=== PATIENT | male | born 1945 | race African-American/Black ===

== ENCOUNTER 2020-05-10 17:17 | Emergency (ER) | payer MEDICARE ==
[~2020-05-10 17:17] MED LIST: Iopamidol-370 76% 500 ML 1 ML ONE
[2020-05-10 18:22] LABS: #Eosinphils 0.7 thou/uL (0.0-0.7); #Lymphocytes 1.6 thou/uL (1.20-3.40); #Monocytes 0.5 thou/uL (0.11-0.59); #Neutrophils 2.8 thou/uL (1.40-6.50); %Basophils 0.5 % (0.0-1.0); %Eosinophils 13.2 % (0.0-10.0); %Lymphocytes 28.5 % (21.0-51.0); %Monocytes 8.4 % (0.0-10.0); %Neutrophils 49.4 % (42.0-75.0); Hemoglobin 15.4 g/dL (14.0-18.0); Mean Corpuscular HGB CONC 32.2 g/dL (32.0-36.0); Mean Corpuscular Hemoglobin 28.5 pg (27.0-31.0); Mean Corpuscular Volume 88.5 fL (78.0-98.0); Mean Platelet Volume 7.4 fL (7.4-10.4); Platelet Count 250 thou/uL (130-400); Red Blood Cell (RBC) Count 5.39 mill/uL (4.70-6.10); White Blood Cell (WBC) Count 5.6 thou/uL (4.8-10.8)
[2020-05-10 18:43] LABS: ALT (SGPT) 30 U/L (8-55); AST (SGOT) 20 U/L (5-34); Albumin 4.7 g/dL (3.4-4.8); Alkaline Phosphatase 71 U/L (40-110); Anion Gap 12 mmol/L (10-20); BUN (Urea Nitrogen) 17 mg/dL (8.4-25.7); Bilirubin, Total 0.6 mg/dL (0.2-1.2); Calc. Creatinine Clearance 0 mL/min (70-130); Carbon Dioxide 24 mmol/L (23-31); Chloride 107 mmol/L (98-107); Estimated GFR-MDRD 58; Globulin 3.3 g/dL (2.4-3.5); Glucose 125 mg/dL (83-110); Lipase 43 U/L (8-78); Potassium 4.1 mmol/L (3.5-5.1); Sodium 139 mmol/L (136-145)
[2020-05-10 19:07] LABS: Bilirubin Negative (Negative); Blood, Urine Negative (Negative); Clarity Turbid (Clear); Glucose, Urine (Dipstick) Normal (Negative); Ketone, Urine Negative (Negative); Leukocyte 500 Leu/uL (Negative); Nitrite Negative (Negative); Protein, Urine (Dipstick) 30 mg/dL (Neg-Trace); Specific Gravity, Urine 1.026 (1.002-1.036); Squamous Epithelial 0-3 HPF (0-3); Urobilinogen Normal mg/dL (Less than 2); WBC/HPF Greater than 50 HPF (0-3)
[2020-05-10 19:09] LABS: Bacteria/HPF 1+ HPF (None Seen)
--- NOTE | 2020-05-10 19:44 | CT ---
CT ABDOMEN AND PELVIS WITH IV CONTRAST 05/10/2020 CLINICAL INFORMATION: Abdominal pain over 2 weeks which has gotten worse. COMPARISON: Noncontrast CT abdomen and pelvis and 2009 Technique: Multiple contiguous axial CT images are obtained through the abdomen and pelvis with IV contrast. Cor onal reformatted images are provided. FINDINGS: Lower Chest: Scarring versus atelectasis at each lung base. Vessels: Vascular calcifications present in the visualized coronary arteries as well as involving the abdominal aorta and iliac arteries. Abdomen: Portal vein:Patent Gallbladder: Within normal limits for CT imaging. Liver: Subcentimeter too small to characterize hypodense lesion posterior segment right hepatic lobe. Spleen: within normal limits. Pancreas: within normal limits. Adrenals: within normal limits. Kidneys: A 1.6 cm fluid attenuation cystic lesion is seen in the midportion left kidney compatible wi th a cyst. Kidneys otherwise have a normal CT appearance bilaterally. Bowel: Multiple surgical clips are seen in the epigastric region and adjacent to the gastric cardia. There is mild deformity of the stomach in region of surgical clips. Findings could be related to postoperative changes and possibly secondary to prior hiatal hernia repair. Clinical correlation is s uggested. Loops of small bowel are normal in caliber. Appendix: No CT findings to suggest appendicitis. Peritoneum: No ascites or free air; no fluid collection. Mesentery and Retroperitoneum: No enlarged mesenteric or retroperitoneal lymph nodes. Abdominal Wall: within normal limits. Pelvis: Reproductive Organs: Prostate gland is enlarged and lobulated measuring 5.8 cm. Pelvis a penile prosthesis is visualized. Bladder: Lobulated irregularity appearance at the base of the urinary bladder on the left which is mo st likely attributable to an asymmetrically lobulated and enlarged prostate gland. Visualization suggested. Bones: Degenerative changes in the spine. IMPRESSION: 1. Asymmetric lobulated appearance of the base urinary bladder on the left. This is most likely relat ed to asymmetric enlargement of the prostate gland which demonstrates a lobulated contour. However, direct visualization is suggested. 2. Irregularity in the region of the gastric cardia and proximal body of the stomach along the lesser curvature likely attributable to postoperative changes. Multiple surgical clips are seen in this region. 3. Subcentimeter too small to characterize hypodense lesion right hepatic lobe. 4. Left renal cyst.
[2020-05-10] MEDS ORDERED: Morphine 4 MG/ML VIAL ONE (20:50)
== END 2020-05-10 21:13 | disposition home or self-care (01) ==
LOC: ERS 17:17
DX: N12 Tubulo-interstitial nephritis, not specified as acute or chronic (principal); N42.89 Other specified disorders of prostate; E11.9 Type 2 diabetes mellitus without complications; E78.5 Hyperlipidemia, unspecified; I10 Essential (primary) hypertension; N40.0 Benign prostatic hyperplasia without lower urinary tract symptoms; Z79.82 Long term (current) use of aspirin; Z79.84 Long term (current) use of oral hypoglycemic drugs; Z79.899 Other long term (current) drug therapy
CPT/HCPCS: 74177; 80053; 81003; 81015; 83690; 85025; 96374; J2270; Q9967

== ENCOUNTER 2020-08-21 11:29 | Observation (INO) | payer MEDICARE ==
[2020-08-21 13:00] LABS: #Eosinphils 0.8 thou/uL (0.0-0.7); #Lymphocytes 1.6 thou/uL (1.20-3.40); #Monocytes 0.5 thou/uL (0.11-0.59); #Neutrophils 2.6 thou/uL (1.40-6.50); %Basophils 0.8 % (0.0-1.0); %Eosinophils 14.9 % (0.0-10.0); %Lymphocytes 29.5 % (21.0-51.0); %Neutrophils 46.8 % (42.0-75.0); Hemoglobin 14.9 g/dL (14.0-18.0); Mean Corpuscular Hemoglobin 30.3 pg (27.0-31.0); Mean Corpuscular Volume 86.6 fL (78.0-98.0); Mean Platelet Volume 6.9 fL (7.4-10.4); Platelet Count 242 thou/uL (130-400); RBC Distribution Width 12.3 % (11.5-14.5); Red Blood Cell (RBC) Count 4.93 mill/uL (4.70-6.10); White Blood Cell (WBC) Count 5.6 thou/uL (4.8-10.8)
[2020-08-21 13:15] LABS: ALT (SGPT) 27 U/L (8-55); AST (SGOT) 21 U/L (5-34); Albumin 4.5 g/dL (3.4-4.8); Alkaline Phosphatase 55 U/L (40-110); Anion Gap 16 mmol/L (10-20); BUN (Urea Nitrogen) 28 mg/dL (8.4-25.7); Bilirubin, Total 0.4 mg/dL (0.2-1.2); Calc. Creatinine Clearance 0 mL/min (70-130); Carbon Dioxide 19 mmol/L (23-31); Chloride 106 mmol/L (98-107); Estimated GFR-MDRD 48; Globulin 3.3 g/dL (2.4-3.5); Glucose 100 mg/dL (83-110); Lipase 30 U/L (8-78); Potassium 5.4 mmol/L (3.5-5.1); Protein, Total 7.8 g/dL (5.8-8.1); Sodium 136 mmol/L (136-145)
[2020-08-21 13:22] LABS: Bacteria/HPF 1+ HPF (None Seen); Bilirubin Negative (Negative); Blood, Urine 3+ (Negative); Clarity Turbid (Clear); Glucose, Urine (Dipstick) Normal (Negative); Ketone, Urine Negative (Negative); Leukocyte 250 Leu/uL (Negative); Nitrite Negative (Negative); Protein, Urine (Dipstick) 100 mg/dL (Neg-Trace); RBC/HPF Greater than 50 HPF (0-3); Specific Gravity, Urine 1.026 (1.002-1.036); Squamous Epithelial 0-3 HPF (0-3); Urobilinogen Normal mg/dL (Less than 2); WBC/HPF 21-50 HPF (0-3); pH, Urine 5.5 (5.0-9.0)
[2020-08-21] MEDS ORDERED: cefTRIAXone\\ROCEPHIN 2 GM VIAL ONE (13:59)
--- NOTE | 2020-08-21 14:26 | CT ---
CT ABDOMEN AND PELVIS WITHOUT CONTRAST: 08/21/20 PROVIDED CLINICAL HISTORY: Left lower quadrant pain. FINDINGS: Comparison is made with the study dated 05/10/20. The visualized lung bases are free of significant opacity. The solid abdominal organs are suboptimally evaluated in the absence of IV contrast material but demo nstrates an unremarkable unenhanced CT appearance of a stable left renal cyst. The urinary bladder is decompressed by a Bernardo catheter. The prostate again appears enlarged. There is stranding involving the fat about the urinary bladder. Penile prosthesis is again noted. There is no bowel dilatation, additional inflammatory fat stranding, free fluid or free air apparent. There is no evidence for appendicitis. Conspicuous atherosclerotic vascular calcifications are seen, including at least moderate stenosis at the SMA origin. Osseous structures demonstrate no concerning lytic or blastic lesions. IMPRESSION: 1. Stranding of the fat about the urinary bladder, suggesting cystitis. 2. Other chronic findings as described. POS: JOESPH
[2020-08-21 14:29] LABS: Anion Gap 19 mmol/L (10-20); BUN (Urea Nitrogen) 27 mg/dL (8.4-25.7); Calc. Creatinine Clearance 0 mL/min (70-130); Calcium 10.1 mg/dL (7.8-10.44); Carbon Dioxide 16 mmol/L (23-31); Chloride 106 mmol/L (98-107); Estimated GFR-MDRD 50; Glucose 94 mg/dL (83-110); Potassium 5.7 mmol/L (3.5-5.1); Sodium 135 mmol/L (136-145)
[2020-08-21] MEDS ORDERED: Insulin Regular 300 UNITS/3 ML VIAL ONE (14:56)
[2020-08-21] MEDS ORDERED: Dextrose 50% Abboject 50 ML SYRINGE ONE (14:56)
[2020-08-21] MEDS ORDERED: Senokot S 8.6-50 MG TAB PO PRN (16:25)
[2020-08-21] MEDS ORDERED: Acetaminophen 325 MG TAB PO PRN (16:25)
[2020-08-21] MEDS ORDERED: Sodium Chloride 0.9% 1,000 ML IV SCH (16:30)
[2020-08-21] MEDS ORDERED: Calcium Gluc 4.6 MEQ/10 ML (100 MG/ML) SLOW IVP SCH (16:30)
[2020-08-21] MEDS ORDERED: Calcium Gluc 4.6 MEQ/10 ML (100 MG/ML) ONE (16:43)
[2020-08-21] MEDS ORDERED: hydrALAZINE 20 MG/ML VIAL SLOW IVP PRN (17:07)
[2020-08-21] MEDS ORDERED: cefTRIAXone\\ROCEPHIN 1 GM VIAL ONE (17:33)
[2020-08-21] MEDS: cefTRIAXone\\ROCEPHIN 1 GM in Sodium Chloride 0.9% 100 ML IVPB SCH (17:37)
--- NOTE | 2020-08-21 19:31 | HP ---
CHIEF COMPLAINT: Left-sided flank pain. HISTORY OF PRESENT ILLNESS: The patient is a 75-year-old male with a history of hypertension and benign prostate hyperplasia, who comes into the hospital with complaints of left flank pain which has been going on for several months. The patient states that this pain is not new. However, he states that he recently had a Bernardo catheter put in at [facility] by Dr. Becerril, who is his urologist, since he has been having problems urinating. He was supposed to follow up with Dr. Becerril on September 01 for removal of the Bernardo catheter. He does have a penile prosthesis. He denies any fevers, chills, nausea, vomiting, diarrhea. He had pyelonephritis about a month ago and was treated appropriately. In the ED, he was noted to have hyperkalemia and also mild acute kidney injury. At this time, he was admitted to the hospital on telemetry for further evaluation. PAST MEDICAL HISTORY: History of type 2 diabetes, high cholesterol, hypertension, BPH, hepatitis C, penile prosthesis. PAST SURGICAL HISTORY: He has penile prosthesis. SOCIAL HISTORY: He is a former drug user, used cocaine. Denies any alcohol use. The patient has no smoking history. He is a full code. Lives with his family. FAMILY HISTORY: No history of heart disease or strokes. ALLERGIES: HE HAS NO KNOWN DRUG ALLERGIES. MEDICATIONS: He does not have a list of medications. I have asked the patient to bring his medication list. REVIEW OF SYSTEMS: All negative except for the ones mentioned above in the HPI. PHYSICAL EXAMINATION: VITAL SIGNS: Temperature 97.6, blood pressure 132/93, pulse 91, sats are 98% on room air. GENERAL: He is awake, alert, and oriented x3. Does not appear in distress. CV: S1, S2 present. No murmurs, rubs, or gallops. ABDOMEN: Soft and nontender. Bowel sounds are present x2. EXTREMITIES: No edema. Pedal pulses are present x2. LUNGS: Clear to auscultation. No rhonchi or wheezes noted. NEUROVASCULAR: No focal deficits noted. SKIN: No cuts, lesions, or bruises noted. LABORATORY RESULTS: As of the following: Sodium of 135, potassium of 5.7, BUN of 27, creatinine 1.62. His urine appears wbc's of 21 to 50 with 1+ bacteria. Lipase is 30. CBC; WBCs of 5.6, hemoglobin of 14.9, hematocrit of 42.7, his platelets are 242. He does have eosinophils elevated. He did have a CT of abdomen and pelvis without contrast which indicated stranding of the fat above the urinary bladder suggesting cystitis and just some chronic copious amount of atherosclerotic vascular calcification including moderate stenosis at the SMA origin. ASSESSMENT AND PLAN: Patient is a very pleasant 75-year-old male, who presents to the hospital with left-sided abdominal pain. 1. Intermittent left-sided flank pain. The patient did not have pain upon palpation. He states that it is just around the left flank area and it comes at times. Currently, he did not have any pain. His urine appeared a little concern for possible infectious. We will start him on ceftriaxone for now. We will send the urine for culture. 2. Hyperkalemia, unclear etiology. He denies eating anything out of the ordinary. I do not have his medication list to review. I am not sure if he is on lisinopril. I have asked the family to bring in the medication list. He was given insulin and D50. I will give him calcium gluconate. EKG did not have any acute changes. We will recheck a BMP later. We will also check a magnesium. 3. Mild acute kidney injury. We will continue some gentle hydration and see if that improves it. 4. Urinary tract infection. We will continue ceftriaxone for now. He was not on any recent antibiotics per the patient. His Bernardo catheter was changed in the ER with a new Bernardo catheter that was placed with a leg bag. 5. Deep venous thrombosis prophylaxis. We will put the patient on SCDs and subcu heparin. Job ID: [id number]
[2020-08-21 20:36] LABS: Anion Gap 14 mmol/L (10-20); BUN (Urea Nitrogen) 20 mg/dL (8.4-25.7); Calc. Creatinine Clearance 0 mL/min (70-130); Calcium 9.6 mg/dL (7.8-10.44); Carbon Dioxide 19 mmol/L (23-31); Chloride 108 mmol/L (98-107); Estimated GFR-MDRD 66; Glucose 78 mg/dL (83-110); Potassium 4.1 mmol/L (3.5-5.1); Sodium 137 mmol/L (136-145)
[2020-08-21 22:11] VITALS: BMI 25.7
[2020-08-22 04:47] LABS: #Basophils 0.1 thou/uL (0.0-0.2); #Eosinphils 1.1 thou/uL (0.0-0.7); #Lymphocytes 1.8 thou/uL (1.20-3.40); #Monocytes 0.6 thou/uL (0.11-0.59); #Neutrophils 2.8 thou/uL (1.40-6.50); %Basophils 0.9 % (0.0-1.0); %Eosinophils 17.6 % (0.0-10.0); %Lymphocytes 27.7 % (21.0-51.0); %Neutrophils 43.8 % (42.0-75.0); Hemoglobin 13.7 g/dL (14.0-18.0); Mean Corpuscular HGB CONC 33.8 g/dL (32.0-36.0); Mean Corpuscular Hemoglobin 29.5 pg (27.0-31.0); Mean Corpuscular Volume 87.1 fL (78.0-98.0); Mean Platelet Volume 6.9 fL (7.4-10.4); Platelet Count 245 thou/uL (130-400); RBC Distribution Width 12.2 % (11.5-14.5); Red Blood Cell (RBC) Count 4.64 mill/uL (4.70-6.10); White Blood Cell (WBC) Count 6.4 thou/uL (4.8-10.8)
[2020-08-22 05:15] LABS: Anion Gap 14 mmol/L (10-20); BUN (Urea Nitrogen) 17 mg/dL (8.4-25.7); Calc. Creatinine Clearance 58 mL/min (70-130); Calcium 9.5 mg/dL (7.8-10.44); Carbon Dioxide 20 mmol/L (23-31); Chloride 108 mmol/L (98-107); Estimated GFR-MDRD 76; Glucose 93 mg/dL (83-110); Potassium 5.2 mmol/L (3.5-5.1); Sodium 137 mmol/L (136-145)
[2020-08-22] MEDS ORDERED: Enoxaparin Sodium 40 MG/0.4 ML SYRINGE SC SCH (09:00)
[2020-08-22] MEDS ORDERED: HumaLOG 300 UNITS/3 ML VIAL SC PRN ×2 (09:01)
[2020-08-22] MEDS ORDERED: Dextrose 5% in Water 1,000 ML IV PRN (09:01)
[2020-08-22] MEDS ORDERED: Dextrose 50% Abboject 50 ML SYRINGE SLOW IVP PRN (09:01)
--- NOTE | 2020-08-22 09:23 | PDOC.HOSPP ---
- Subjective Encounter Date: 08/22/20 Encounter Time: 09:21 Subjective: Patient seen and examined. No new complaints. No overnight events. Says he is feeling much better, still has some discomfort in pelvic region. Denies any nausea, vomiting or diarrhea. Denies any fever or chills. Denies any chest pain or heart palps or SOB. He is going to speak with his spouse via phone this morning to confirm his home medications. - Objective Vital Signs & Weight: Vital Signs (12 hours) Temp Pulse Resp BP Pulse Ox 08/22/20 03:45 97.9 F 83 16 166/72 H 96 Weight Weight 163 lb 14.4 oz I&O: 08/21/20 08/22/20 08/23/20 07:59 06:59 06:59 Intake Total Output Total Balance Result Diagrams: 08/22/20 04:09 08/22/20 04:09 Additional Labs: Accuchecks 08/22/20 06:20 POC Glucose 105 H EKG Reviewed by me: Yes Hospitalist ROS - Review of Systems Constitutional: denies: fever, chills Respiratory: denies: cough, shortness of breath, hemoptysis Cardiovascular: denies: chest pain, palpitations, orthopnea, edema, light headedness Gastrointestinal: denies: nausea, vomiting, abdominal pain, diarrhea Skin: denies: bruising Neurological: denies: weakness, change in speech All other systems reviewed; all pertinent +/- noted in HPI/Subj - Medication Medications: Active Medications Generic Name Dose Route Start Last Admin Trade Name Freq PRN Reason Stop Dose Admin Acetaminophen 650 mg 08/21/20 16:25 08/22/20 05:10 Acetaminophen 325 Mg Tab PO 650 mg Q4H PRN Administration Headache/Fever/Mild Pain (1-3) Ceftriaxone Sodium 1 gm/ 100 mls @ 200 mls/hr 08/21/20 17:00 08/21/20 17:37 Sodium Chloride IVPB 100 mls Q24HR BROKOE Administration Sodium Chloride 10 ml 08/21/20 21:00 08/21/20 20:50 Flush - Normal Saline 10 Ml Syringe IVF Not Given Q12HR BROOKE - Exam General Appearance: NAD, awake alert Eye: anicteric sclera ENT: normocephalic atraumatic Neck: supple, symmetric Heart: RRR, no murmur, no gallops, no rubs, normal peripheral pulses Respiratory: CTAB, no wheezes, no rales, no ronchi, normal chest expansion Gastrointestinal: soft, non-tender, normal bowel sounds, no guarding, no rigidity Extremities: no cyanosis, no edema Musculoskeletal: normal tone, normal strength Psychiatric: normal affect, A&O x 3 Hosp A/P (1) Hyperkalemia Code(s): E87.5 - HYPERKALEMIA Status: Acute (2) UTI (urinary tract infection) Status: Acute (3) MAYE (acute kidney injury) Code(s): N17.9 - ACUTE KIDNEY FAILURE, UNSPECIFIED Status: Acute (4) HTN (hypertension) Code(s): I10 - ESSENTIAL (PRIMARY) HYPERTENSION Status: Chronic (5) DMII (diabetes mellitus, type 2) Status: Chronic (6) BPH (benign prostatic hyperplasia) Code(s): N40.0 - BENIGN PROSTATIC HYPERPLASIA WITHOUT LOWER URINRY TRACT SYMP Status: Chronic - Plan #Hyperkalemia EKG SR, 1st degree AVB. Improved 5.2 this morning. Recheck at 1300. hold metformin (unconfirmed) and lisinopril (unconfirmed) home medication #UTI Continue rocephin. UCX pending. #MAYE Improved, creatinine 1.13 this morning. IVF stopped. Encourage oral flluid intake. #HTN Still awaiting reconciliation of home medications, spouse to call this morning after she gets off work to confirm home meds. BP 166/72 this morning. Hold home dose lisinopril (unconfirmed) d/t problem #3 Start norvasc Continue to monitor BP. #DMII BG 105 this morning. Hold home dose metformin d/t problem #3 Start ISS AC/HS checks. #BPH Restart flomax home dose.
[2020-08-22] MEDS ORDERED: Amlodipine 10 MG TAB PO SCH (09:45)
[2020-08-22] MEDS ORDERED: Magnesium 2 GM/50 ML 2 GM in Premix Bag 1 BAG IVPB SCH (14:00)
[2020-08-22 14:20] LABS: Anion Gap 14 mmol/L (10-20); BUN (Urea Nitrogen) 15 mg/dL (8.4-25.7); Calc. Creatinine Clearance 47 mL/min (70-130); Carbon Dioxide 22 mmol/L (23-31); Chloride 105 mmol/L (98-107); Estimated GFR-MDRD 61; Glucose 104 mg/dL (83-110); Potassium 5.1 mmol/L (3.5-5.1); Sodium 136 mmol/L (136-145)
[2020-08-22 15:21] VITALS: TEMP 98.5
[2020-08-22] MEDS ORDERED: Atenolol 25 MG TAB PO SCH (16:00)
[2020-08-22] MEDS: cefTRIAXone\\ROCEPHIN 1 GM in Sodium Chloride 0.9% 100 ML IVPB SCH (16:26)
--- NOTE | 2020-08-22 19:01 | DIS ---
DATE OF ADMISSION: 08/21/2020 DATE OF DISCHARGE: 08/22/2020 PRIMARY CARE PHYSICIAN: None. DIAGNOSES: 1. Hyperkalemia. 2. Urinary tract infection. 3. Acute kidney injury. 4. Hypertension. 5. Diabetes type 2. 6. Benign prosthetic hypertrophy. CONDITION: Stable. I have examined the patient on the day of discharge, vital signs are stable and denies any chest pain, heart palpitations, shortness of breath, acute abdominal pain, nausea, vomiting, or diarrhea. S1 and S2 auscultated. Lungs clear bilaterally. No acute abdomen noted. CONSULTS: None. HOSPITAL COURSE: The patient is a 75-year-old male, who presented to the emergency room in hospital floor with left-sided flank pain for the past several months. He has had a recent Bernardo catheter placed by Dr. Becerril at [facility], because he was having problems urinating. While the left-sided flank pain is not new, he came to the ER for further evaluation. In the ER, the patient was found to have UA consistent for possible urinary tract infection. He was started on Rocephin. Urine cultures were sent. At 24 hours there was no growth. He was also found to be hyperkalemic, presenting with a potassium of 5.4. Upon discharge, his potassium was 5.2. In the ER, he had no EKG changes. He was given one dose of calcium gluconate and D50 with regular insulin. The patient was also found to have acute kidney injury, presenting with a creatinine of 1.68. Upon discharge, his creatinine is 1.37. He will be discharged to home with instructions to hold his metformin. Recheck a BMP in 2 days. Follow up with his primary care provider in the next week. The patient is going to be discharged on Keflex and amlodipine. MEDICATIONS AT DISCHARGE: 1. Glipizide 5 mg p.o. q.a.m. 2. Aspirin 81 mg p.o. daily. 3. Atenolol 25 mg p.o. daily. 4. Atorvastatin 10 mg p.o. daily. 5. Cholecalciferol 50 mcg p.o. daily. 6. Tamsulosin 0.4 mg p.o. daily. 7. Keflex 500 mg p.o. b.i.d. x7 days. 8. Amlodipine 10 mg p.o. daily. FOLLOWUP: Follow up with PCP in 1 week. DIET: Low-potassium diet. ACTIVITY: As tolerated. DISPOSITION: Home. TIME SPENT: Upon this discharge was 20 minutes. Job ID: [id number]
[2020-08-22 22:04] VITALS: BP 150/80
[2020-08-23] MEDS ORDERED: Amlodipine 10 MG TAB PO SCH (09:00)
[2020-08-23] MEDS ORDERED: Tamsulosin HCl 0.4 MG CAP PO SCH (09:00)
[2020-08-23] MEDS ORDERED: Cholecalciferol 1,000 UNITS (25 MCG) TAB PO SCH (09:00)
[2020-08-23] MEDS ORDERED: Atenolol 25 MG TAB PO SCH (09:00)
[2020-08-23] MEDS ORDERED: Atorvastatin Calcium 10 MG TAB PO SCH (09:00)
[2020-08-23] MEDS ORDERED: Aspirin 81 mg Enteric Coated Tablet PO SCH (09:00)
[2020-08-23 12:50] LABS: SARS-CoV-2 MS2 Positive; SARS-CoV-2 N Gene Negative; SARS-CoV-2 S Gene Negative; SARS-CoV-2 by NAA Not Detected (NotDetected); SARS-CoV-2 orf1ab Negative
== END 2020-08-22 18:45 | disposition home or self-care (01) ==
LOC: ERS 11:29 → ERHOLD 16:33 → 2NO 20:39
PROVIDERS: ADMIT Internal Medicine; ATTEND Internal Medicine
DX: E87.5 Hyperkalemia (principal); N39.0 Urinary tract infection, site not specified; N17.9 Acute kidney failure, unspecified; I10 Essential (primary) hypertension; E11.9 Type 2 diabetes mellitus without complications; N40.1 Benign prostatic hyperplasia with lower urinary tract symptoms; R33.8 Other retention of urine; E78.00 Pure hypercholesterolemia, unspecified; F14.11 Cocaine abuse, in remission; Z79.82 Long term (current) use of aspirin; Z79.84 Long term (current) use of oral hypoglycemic drugs; Z79.899 Other long term (current) drug therapy; Z20.828 Contact with and (suspected) exposure to other viral communicable diseases
CPT/HCPCS: 51702; 74176; 80048 ×3; 80053; 82962; 83690; 83735; 85025 ×2; 87086; 93005; 96365; 96372; 96375 ×3; 96376 ×2; 97139 ×2; 99285; G0378 ×3; U0003; 36415; 36416; 81003; 81015; 87635; J0696; J1650; J1815; J2001; J3475; J3490

== ENCOUNTER 2025-07-07 09:55 | Emergency (ER) | payer MEDICARE, OTHER | END 2025-07-07 11:59 | disposition home or self-care (01) | LOC: ERS 09:55 | DX: H61.23 Impacted cerumen, bilateral (principal); E11.9 Type 2 diabetes mellitus without complications; E78.00 Pure hypercholesterolemia, unspecified; I10 Essential (primary) hypertension; Z79.899 Other long term (current) drug therapy; Z79.84 Long term (current) use of oral hypoglycemic drugs | CPT/HCPCS: 69209; 99282 ==